=== PATIENT | male | born 1955 | race Two or more races ===

== ENCOUNTER 2021-02-18 16:23 | Emergency (ER) | payer OTHER ==
[~2021-02-18] VITALS: Ht 182.9 cm; Wt 75.0 kg
[2021-02-18 17:18] LABS: BASOPHILS % (AUTO) 0.9 % (0-1); EOSINOPHILS # (AUTO) 0.1 X10'3 (0-0.9); EOSINOPHILS % (AUTO) 1.9 % (0-6); HEMATOCRIT 42.7 % (42.0-52.0); HEMOGLOBIN 14.4 g/dl (14.0-17.9); LYMPHOCYTES # (AUTO) 1.6 X10'3 (1.1-4.8); LYMPHOCYTES % (AUTO) 29.7 % (21-51); MEAN CORPUSCULAR HEMOGLOBIN 31.6 PG (27.0-31.0); MEAN CORPUSCULAR HGB CONC 33.7 g/dL (33.0-36.5); MEAN CORPUSCULAR VOLUME 93.7 FL (78-98); MEAN PLATELET VOLUME 8.8 FL (7.4-10.4); MONOCYTES # (AUTO) 0.5 X10'3 (0-0.9); MONOCYTES % (AUTO) 8.8 % (2-12); NEUTROPHILS # (AUTO) 3.2 X10'3 (1.8-7.7); NEUTROPHILS % (AUTO) 58.7 % (42-75); PLATELET COUNT 259 X10'3 (140-440); RED BLOOD COUNT 4.56 X10'6 (4.70-6.10); RED CELL DISTRIBUTION WIDTH 13.6 % (11.5-14.5); WHITE BLOOD COUNT 5.4 X10'3 (4.5-11.0)
[2021-02-18 17:24] LABS: ALANINE AMINOTRANSFERASE 16 U/L (12-78); ALBUMIN/GLOBULIN RATIO 1.3 (1.1-1.5); ALKALINE PHOSPHATASE 103 IU/L (46-116); ANION GAP 9 (8-16); ASPARTATE AMINO TRANSFERASE 17 U/L (10-37); BILIRUBIN,TOTAL 0.6 MG/DL (0.1-1.0); BLOOD UREA NITROGEN 7 MG/DL (7-18); BUN/CREATININE RATIO 6.7 (5.4-32.0); CHLORIDE 103 MMOL/L (99-107); CREATININE 1.04 MG/DL (0.60-1.10); GLUCOSE 97 MG/DL (70-104); POTASSIUM 3.5 MMOL/L (3.5-5.1); SODIUM 139 MMOL/L (135-145); TOTAL CARBON DIOXIDE 27.5 MMOL/L (24-32); eGFR 72 ML/MIN
[2021-02-18 17:25] LABS: PARTIAL THROMBOPLASTIN TIME 28 SECONDS (22-32)
--- NOTE | 2021-02-18 17:47 | NUR ---
pt back from [place]
[2021-02-18] MEDS ORDERED: ofloxacin 0.33% 5ml ophthalmic drops RIGHTEYE STA (18:17)
[2021-02-18] MEDS ORDERED: iohexol 350MG/ML 100ml bottle IV ONE (18:55)
[2021-02-18 20:13] VITALS: BP 126/77
== END 2021-02-18 20:14 | disposition home or self-care (01) ==
LOC: ER 16:24
DX: R20.0 Anesthesia of skin (principal); E04.1 Nontoxic single thyroid nodule; E78.00 Pure hypercholesterolemia, unspecified; I10 Essential (primary) hypertension
CPT/HCPCS: 36415; 70450; 70492; 70496; 80053; 85025; 85610; 85730; 99285; Q9967

== ENCOUNTER 2024-07-08 10:36 | Day surgery (SDC) | payer OTHER ==
[2024-07-03 11:12] LABS: BASOPHILS % (AUTO) 0.7 % (0-1); EOSINOPHILS # (AUTO) 0.1 X10'3 (0-0.9); EOSINOPHILS % (AUTO) 1.1 % (0-6); LYMPHOCYTES # (AUTO) 1.6 X10'3 (1.1-4.8); LYMPHOCYTES % (AUTO) 27.6 % (21-51); MEAN CORPUSCULAR HEMOGLOBIN 31.9 PG (27.0-31.0); MEAN CORPUSCULAR HGB CONC 34.4 g/dL (33.0-36.5); MEAN CORPUSCULAR VOLUME 92.8 FL (78-98); MEAN PLATELET VOLUME 8.8 FL (7.4-10.4); MONOCYTES # (AUTO) 0.6 X10'3 (0-0.9); MONOCYTES % (AUTO) 11.2 % (2-12); NEUTROPHILS # (AUTO) 3.4 X10'3 (1.8-7.7); NEUTROPHILS % (AUTO) 59.4 % (42-75); PRE OP HEMATOCRIT 45.2 % (42.0-52.0); PRE OP HEMOGLOBIN 15.5 g/dL (14.0-17.9); PRE OP PLATELET COUNT 282 X10'3 (140-440); PRE OP WHITE BLOOD COUNT 5.7 10'3 (4.8-10.8); RED BLOOD COUNT 4.87 X10'6 (4.70-6.10); RED CELL DISTRIBUTION WIDTH 13.2 % (11.5-14.5)
[2024-07-03 11:27] LABS: ALBUMIN 4.2 G/DL (3.4-5.0); ALBUMIN/GLOBULIN RATIO 1.2 (1.1-1.5); ALKALINE PHOSPHATASE 110 IU/L (46-116); BLOOD UREA NITROGEN 7 MG/DL (7-18); BUN/CREATININE RATIO 8.6 (10.0-20.0); CHLORIDE 100 MMOL/L (99-107); CREATININE 0.81 MG/DL (0.60-1.10); PRE OP ALT 12 U/L (30-65); PRE OP ANION GAP 4 (8-16); PRE OP AST 16 U/L (10-37); PRE OP BILIRUB, TOTAL 0.6 MG/DL (0.0-1.0); PRE OP GLUCOSE 92 MG/DL (70-104); PRE OP POTASSIUM 4.4 MMOL/L (3.4-5.1); PRE OP SODIUM 137 MMOL/L (135-145); TOTAL CARBON DIOXIDE 32.6 MMOL/L (24-32); TOTAL PROTEIN 7.8 G/DL (6.4-8.2); eGFR > 90 ML/MIN
[2024-07-08] VITALS (19 sets, daily range): BP systolic 84–128; BP diastolic 48–84; PULSE 64–107; RESP 12–19; TEMP 97.9; O2SAT 93–100
[~2024-07-08] VITALS: Ht 182.9 cm; Wt 65.3 kg
[2024-07-08] MEDS: ceFAZolin 2gm in dextrose, iso 50 ML IV ONE (05:30)
[~2024-07-08 10:36] MED LIST: ALBU8HFA INH; ASPI-611 PO; BUPIVAcaine 2.5mg/ml inj 50ml vial (contains preservative) ONE; CELE-193 PO; DICL20GE TD; DILT180T11 PO; IBUP-2697 PO; LIDOcaine 1% 30ml preserv. free vial ONE; OLODATEROL INH; PRAV80TA3 PO; TELM40TA8 PO; TIZA4CAP PO
[2024-07-08] MEDS: famotidine 20mg tablet PO ONE (11:26)
[2024-07-08] MEDS: tamsulosin 0.4mg capsule PO ONE (11:26)
[2024-07-08] MEDS: ringers solution, lacted 1,000 ML IV SCH (11:28)
[2024-07-08] MEDS ORDERED: albuterol 2.5 MG/3 ML nebule NEB PRN (11:35)
[2024-07-08] MEDS ORDERED: sevoflurane 250ml liquid IH ONE (12:43)
[2024-07-08] MEDS ORDERED: fentaNYL/PF 50MCG/1 ML 2ML syringe ONE (12:43)
[2024-07-08] MEDS ORDERED: propofol inj 20 ML IV ONE (12:44)
[2024-07-08] MEDS ORDERED: rocuronium 10mg/ml inj IV ONE (12:44)
[2024-07-08] MEDS ORDERED: midazolam 1 mg/ML 2ml injection ONE (12:44)
[2024-07-08] MEDS ORDERED: morphine 2 MG/ML inj. syringe IV PRN (13:30)
[2024-07-08] MEDS ORDERED: morphine 4 MG/ML inj SYRINge IV PRN (13:30)
[2024-07-08] MEDS ORDERED: proCHLORperazine 10 MG/2 ml inj IV PRN (13:30)
[2024-07-08] MEDS ORDERED: meperidine/PF 25mg/ml syringe IV PRN ×2 (13:30)
[2024-07-08] MEDS ORDERED: ringers solution, lacted 1,000 ML IV SCH (13:30)
[2024-07-08] MEDS ORDERED: labetalol 20mg/4ml (5mg/ml) syringe IV PRN (13:30)
[2024-07-08] MEDS ORDERED: ondansetron/PF 4mg/2ml inj IV PRN (13:30)
[2024-07-08] MEDS ORDERED: ondansetron/PF 4mg/2ml inj ONE (14:00)
[2024-07-08] MEDS ORDERED: dexamethasone sod phosphate 4mg/ml inj. ONE (14:00)
[2024-07-08] MEDS ORDERED: acetaminophen 1,000mg/100ml IV 100 ML IV ONE (14:01)
[2024-07-08] MEDS ORDERED: neostigmine methylsulfate 1 MG/ML 10ml vial ONE (14:05)
[2024-07-08] MEDS ORDERED: glycopyrrolate 0.2mg/ml inj ONE (14:06)
[2024-07-08] MEDS ORDERED: HYDROcodone/acetaminophen 5mg/325mg tablet PO PRN (14:40)
[2024-07-08] MEDS: meperidine/PF 25mg/ml syringe IV PRN (15:00)
== END 2024-07-08 18:53 | disposition home or self-care (01) ==
LOC: PAS 10:36
PROVIDERS: ATTEND Surgery
DX: K42.9 Umbilical hernia without obstruction or gangrene (principal); K40.90 Unilateral inguinal hernia, without obstruction or gangrene, not specified as recurrent; K40.91 Unilateral inguinal hernia, without obstruction or gangrene, recurrent; I25.10 Atherosclerotic heart disease of native coronary artery without angina pectoris; I10 Essential (primary) hypertension; Z98.890 Other specified postprocedural states; F17.210 Nicotine dependence, cigarettes, uncomplicated; Z95.5 Presence of coronary angioplasty implant and graft; Z79.899 Other long term (current) drug therapy
CPT/HCPCS: 36415; 49591; 49650; 49651; 80053; 82948; 85025; 93005; C1781; J0131; J0690; J1100; J2003; J2175; J2250; J2405; J2704; J2710; J3010; J3490; J7030; J7120; S2900; Z7506; Z7508; Z7512; A4215; A4314; A4618; C1758